=== PATIENT | male | born 1940 | race Caucasian/White ===

== ENCOUNTER 2016-11-22 10:35 | Inpatient (IN) | payer MEDICARE, OTHER ==
[~2016-11-22] VITALS: Ht 172.7 cm; Wt 102.8 kg
[2016-12-21] VITALS (11 sets, daily range): BP systolic 109–171; BP diastolic 71–92; PULSE 83–108; TEMP 97.4–98.3
[2016-12-21] MEDS ORDERED: HCTZ 25MG TAB25 MG PO (07:42)
[2016-12-21] MEDS ORDERED: MULTI VITAMINS1 TAB PO (07:43)
[2016-12-21] MEDS ORDERED: LAXATIVE MAXIMU25 MG PO (07:44)
[2016-12-22 02:07] VITALS: BP 114/65; PULSE 93; TEMP 97.5
[2016-12-22 04:41] VITALS: BP 115/79; PULSE 82; TEMP 98
[2016-12-22 08:00] LABS: HEMATOCRIT 42.8 % (42.0-52.0)
[2016-12-22 08:15] LABS: CALCIUM 8.4 mg/dL (8.4-10.2); CREATININE, serum 1.17 mg/dL (0.66-1.25); MAGNESIUM 1.5 mg/dL (1.6-2.3); PHOSPHOROUS 3.6 mg/dL (2.5-4.5); POTASSIUM 3.9 mmol/L (3.4-5.0)
[2016-12-22 10:30] VITALS: BP 106/57; PULSE 81; TEMP 97.1
[2016-12-22 13:30] VITALS: BP 123/65; PULSE 82; TEMP 97.4
[2016-12-22 18:10] VITALS: BP 116/74; PULSE 73; TEMP 97.5
[2016-12-22 20:29] VITALS: BP 117/73; PULSE 84; TEMP 98.3
[2016-12-23 01:59] VITALS: BP 114/60; PULSE 90; TEMP 98.2
[2016-12-23 05:15] VITALS: BP 111/62; PULSE 93; TEMP 97.9
[2016-12-23 11:16] VITALS: BP 123/69; PULSE 94; TEMP 97.9
[2016-12-23 18:37] VITALS: BP 136/78; PULSE 70; TEMP 97.6
[2016-12-23 21:18] VITALS: BP 132/80; PULSE 91; TEMP 97.7
[2016-12-24 00:40] VITALS: BP 132/72; PULSE 92; TEMP 98.5
[2016-12-24 04:50] VITALS: BP 134/80; PULSE 92; TEMP 97.5
[2016-12-24 09:25] VITALS: BP 131/80; PULSE 91; TEMP 97.9
[2016-12-24] MEDS ORDERED: NORCO 325 MG-51 TAB PO (10:56)
[2016-12-24] MEDS ORDERED: COLACE 100100 MG/CAP PO (10:57)
== END 2016-12-24 11:20 | disposition home or self-care (01) | DRG 337 ==
LOC: INPTSU 12-21 06:32 → SURG 12-21 06:32
PROVIDERS: Surgery
PROC: 0DNW0ZZ Release Peritoneum, Open Approach (ICD-10-PCS; 2016-12-21)
PROC: 0DNP0ZZ Release Rectum, Open Approach (ICD-10-PCS; 2016-12-21)
PROC: 0KNL0ZZ Release Left Abdomen Muscle, Open Approach (ICD-10-PCS; 2016-12-21)
PROC: 0DPW0JZ Removal of Synthetic Substitute from Peritoneum, Open Approach (ICD-10-PCS; 2016-12-21)
PROC: 0WUF0JZ Supplement Abdominal Wall with Synthetic Substitute, Open Approach (ICD-10-PCS; principal; 2016-12-21 08:30)
DX: K43.2 Incisional hernia without obstruction or gangrene (principal); K66.0 Peritoneal adhesions (postprocedural) (postinfection); I10 Essential (primary) hypertension; E66.9 Obesity, unspecified; Z68.34 Body mass index [BMI] 34.0-34.9, adult
CPT/HCPCS: A4315; A9284; C1781; J0690; J1100; J1650; J2250; J2300; J2405; J2704; J2710; J2795; J3010; J3475; J7120

== ENCOUNTER 2020-06-19 10:08 | Day surgery (SDC) | payer MEDICARE, OTHER ==
[~2020-06-19] VITALS: Ht 175.3 cm; Wt 97.3 kg
[~2020-06-19 10:08] MED LIST: COLACE 100100 MG/CAP PO; HCTZ 25MG TAB25 MG PO; LAXATIVE MAXIMU25 MG PO; MULTI VITAMINS1 TAB PO; NORCO 325 MG-51 TAB PO
[2020-06-19] MEDS ORDERED: LIPITOR 10MG10 MG PO (10:34)
[2020-06-19] MEDS ORDERED: ZYLOPRIM 300MG300 MG PO (10:34)
[2020-06-19] MEDS ORDERED: PROFERRIN ES12 MG PO (10:35)
[2020-06-19] MEDS ORDERED: PRESERVISION1 SGL PO (10:35)
[2020-06-19] MEDS ORDERED: ASPIRIN 81M81 MG/TA2 PO (10:35)
[2020-06-19] MEDS ORDERED: TYLENOL 500MG500 MG PO (10:35)
[2020-06-19] MEDS ORDERED: ONE-A-DAY ESSE1 EACH PO (10:36)
[2020-06-19] MEDS ORDERED: CLARITIN 1010 MG/TAB PO (10:36)
[2020-06-19] MEDS ORDERED: PLAVIX 75MG TAB75 MG PO (10:36)
[2020-06-19 10:37] VITALS: BP 134/80; PULSE 84; TEMP 98
[2020-06-19 11:45] VITALS: BP 112/76; PULSE 98
--- NOTE | 2020-06-19 11:45 | NUR ---
PATIENT TRANSPORTED PER CART TO BAY 5 ACCOMPANIED BY ENDO STAFF. PATIENT AWAKE. PATIENT AMBULATED FROM CART TO CHAIR WITH 1 ASSIST. SLOW STEADY GAIT. AT BEDSIDE. VERBAL REPORT RECEIVED. DR PITTS IN ROOM AND SPEAKS WITH PATIENT AND . 1150 PATIENT GIVEN OJ AND MUFFIN. PATIENT DENIES DISCOMFORT AND NAUSEA.
[2020-06-19 12:05] VITALS: BP 128/76; PULSE 86; TEMP 98.1
--- NOTE | 2020-06-19 12:05 | NUR ---
VSS ON ROOM AIR. PATIENT TOLERATES MUFFIN AND OJ WITHOUT PROBLEMS. TALKING TO AT BEDSIDE.
[2020-06-19 12:15] VITALS: BP 130/86; PULSE 86
[2020-06-19 12:30] VITALS: BP 125/74; PULSE 88
--- NOTE | 2020-06-19 12:30 | NUR ---
VSS ON ROOM AIR. PATIENT DENIES PROBLEMS. IV SITE DC'D WITH CATHETER TIP INTACT. PRESSURE AND BANDAGE APPLIED. DISCHARGE INSTRUCTS GIVEN VERBAL AND DISCHARGE PACKET PROVIDED. PATIENT AND VOICED UNDERSTANDING. QUESTIONS ANSWERED. PATIENT CHANGES INTO STREET CLOTHES. PATIENT DISCHARGED PER WHEEL CHAIR ACCOMPANIED BY ENDO STAFF TO PRIVATE VECHILE. DRIVING.
== END 2020-06-19 12:45 | disposition home or self-care (01) ==
LOC: SDCO 10:08
DX: D12.5 Benign neoplasm of sigmoid colon (principal); Z98.0 Intestinal bypass and anastomosis status; K57.30 Diverticulosis of large intestine without perforation or abscess without bleeding; K92.1 Melena; R19.7 Diarrhea, unspecified; Z88.0 Allergy status to penicillin; Z79.82 Long term (current) use of aspirin; D64.9 Anemia, unspecified; Z87.891 Personal history of nicotine dependence
CPT/HCPCS: J2704; J7030